=== PATIENT | male | born 1965 | race Caucasian/White ===

== ENCOUNTER → 2016-06-05 | Outpatient (CLI) | payer OTHER ==
[~2016-06-05] MED LIST: AEROSPAN8.9 GM INH; COMBIVENT0.074 GM/I INH; FISH OIL 1,2001 EACH PO; GABAPENTIN300 MG PO; IBUPROFEN800 MG PO; LOSARTAN-HCTZ1 EAC2 PO; METHOCARBAMOL750 MG PO; NABUMETONE750 MG PO; NORCO 10-325 T1 EACH PO; TYLENOL W/CODEIN1 E1 PO; VIT C PO; ZYLOPRIM 100 M100 MG PO; [UNRECOGNIZED DRUG - CODE] PO
== END ==
LOC: ECHO 11:00
DX: R94.31 Abnormal electrocardiogram [ECG] [EKG] (principal)
CPT/HCPCS: ECHO; 78452; 93017; 93306; A9502; J2785

== ENCOUNTER → 2016-09-03 | Outpatient (CLI) | payer OTHER | LOC: KOH-I 08-24 09:30 | DX: J60 Coalworker's pneumoconiosis (principal); R91.8 Other nonspecific abnormal finding of lung field | CPT/HCPCS: 71250; 94060; 94729 ==

== ENCOUNTER → 2016-09-03 | Outpatient (CLI) | payer BC | LOC: HEART 5 11:00 | DX: J60 Coalworker's pneumoconiosis (principal); R94.2 Abnormal results of pulmonary function studies | CPT/HCPCS: 94060; 94729 ==

== ENCOUNTER 2016-09-05 15:58 | Emergency (ER) | payer OTHER | END 2016-09-05 19:39 | disposition home or self-care (01) | LOC: ER1 15:58 | DX: M51.36 Other intervertebral disc degeneration, lumbar region (principal); M54.42 Lumbago with sciatica, left side; M54.41 Lumbago with sciatica, right side; I10 Essential (primary) hypertension; G89.29 Other chronic pain; Z79.899 Other long term (current) drug therapy | CPT/HCPCS: 72131; 96372; 99283; J1100; J2270; J2405 ==

== ENCOUNTER → 2020-11-23 | Outpatient (CLI) | payer OTHER | LOC: HEART 5 14:39 | DX: Z00.00 Encounter for general adult medical examination without abnormal findings (principal); J45.909 Unspecified asthma, uncomplicated; J84.9 Interstitial pulmonary disease, unspecified; M54.5 Low back pain; M54.2 Cervicalgia; R05 Cough; E86.0 Dehydration; J60 Coalworker's pneumoconiosis | CPT/HCPCS: 94060; 94729 ==

== ENCOUNTER → 2021-12-05 | Outpatient (CLI) | payer MEDICARE | LOC: KOH-I 08:00 | DX: J60 Coalworker's pneumoconiosis (principal); R91.8 Other nonspecific abnormal finding of lung field | CPT/HCPCS: 71250 ==